=== PATIENT | female | born 1990 | race Caucasian/White ===

== ENCOUNTER → 2016-09-15 | Outpatient (CLI) | payer OTHER ==
--- NOTE | 2016-09-15 09:23 | DIAGNOSTIC IMAGING REPORT ---
PELVIC ULTRASOUND CLINICAL HISTORY: Pelvic pain. COMPARISON STUDY: None. TECHNIQUE: Transabdominal and transvaginal sonography of the pelvis was performed. FINDINGS: The uterus measures 10.1 x 5 x 4 cm. The endometrium measures 1 cm in thickness. The right ovary measures 3.9 x 4.2 x 1.9 cm and contains a 1.9 cm dominant follicle. The left ovary measures 3.3 x 2.6 x 1.6 cm. There is color flow within each ovary. There is no free fluid. IMPRESSION: Normal pelvic ultrasound. Electronically signed by: Juan Mar M.D. 09/15/2016 9:21 AM Dictated Date/Time: 09/15/2016 9:20 AM
--- NOTE | 2016-09-15 09:56 | DIAGNOSTIC IMAGING REPORT ---
ULTRASOUND ABDOMEN COMPLETE CLINICAL HISTORY: Upper abdominal pain. COMPARISON STUDY: No priors. TECHNIQUE: Real-time, grayscale, and color flow sonography of the abdomen was performed. Images are reviewed in the transverse and longitudinal planes. FINDINGS: Liver: The liver is normal in size and echotexture. There is no intrahepatic biliary ductal dilatation. Gallbladder: The gallbladder is normal in appearance. No gallstones are identified. There is no gallbladder wall thickening or pericholecystic fluid. A sonographic Lu's sign is reportedly absent. The common bile duct measures up to 0.4 cm in diameter. Pancreas: Visualized portions of the pancreatic head and body are normal in appearance. Spleen: The spleen is normal in size and echotexture, measuring 10.5 cm in length. Kidneys: The kidneys are normal in size and echotexture. There is no hydronephrosis. The right kidney measures 11.1 cm in length and the left kidney measures 11.2 cm in length. No shadowing calculi are identified. Abdominal vasculature: Visualized portions of the abdominal aorta and IVC are normal as imaged. Ascites: None. IMPRESSION: Unremarkable sonographic assessment of the abdomen. Electronically signed by: Ej Martinez M.D. 09/15/2016 9:54 AM Dictated Date/Time: 09/15/2016 9:20 AM
== END | disposition home or self-care (01) ==
LOC: C.ULTR 07:54
PROVIDERS: ATTEND Family Medicine
DX: R10.10 Upper abdominal pain, unspecified (principal); R10.2 Pelvic and perineal pain

== ENCOUNTER → 2017-05-27 | Outpatient (CLI) | payer OTHER ==
[2017-05-27 16:59] LABS: MEAN CELL VOLUME 91.1 fL (80-100); MEAN CORPUSCULAR HEMOGLOBIN 30.1 pg (25-34); MEAN CORPUSCULAR HGB CONC 33.1 g/dl (32-36); MEAN PLATELET VOLUME 9.6 fL (7.4-10.4); PLATELET COUNT 353 K/uL (130-400); RED BLOOD COUNT 3.95 M/uL (4.2-5.4); WHITE BLOOD COUNT 8.22 K/uL (4.8-10.8)
[2017-05-27 17:18] LABS: PREG INTERNAL NEGATIVE QC NEG CLEAR BACKGROUND; PREG INTERNAL POSITIVE QC POS CONTROL LINE
== END | disposition home or self-care (01) ==
LOC: C.LAB1850 16:06
PROVIDERS: ATTEND Physician Assistant
DX: N92.6 Irregular menstruation, unspecified (principal)

== ENCOUNTER 2017-09-10 06:07 | Emergency (ER) | payer OTHER ==
[~2017-09-10] VITALS: Ht 172.7 cm; Wt 75.4 kg
[2017-09-10 06:12] VITALS: TEMP 36.6; Ht 172.7 cm; Wt 75.4 kg
[2017-09-10] MEDS ORDERED: ASCO500T16 PO (06:29)
[2017-09-10] MEDS ORDERED: CHOL1000 PO (06:30)
[2017-09-10] MEDS ORDERED: VITACAP37 PO (06:31)
[2017-09-10] MEDS ORDERED: OMEG10007 PO (06:32)
[2017-09-10] MEDS ORDERED: FERR1TAB23 PO (06:33)
[2017-09-10] MEDS ORDERED: MULT-580 PO (06:34)
[2017-09-10] MEDS ORDERED: FOLI1TAB8 PO (06:35)
[2017-09-10] MEDS ORDERED: SELE1TAB PO (06:36)
[2017-09-10] MEDS ORDERED: DIPHTHERIA/TETANUS/PERTUSSIS 0.5 ML SYR/VIAL IM. ONE (07:00)
[2017-09-10] MEDS ORDERED: LIDOCAINE/EPINEPHRINE 1% 20 ML VIAL INFIL ONE (07:00)
--- NOTE | 2017-09-10 07:54 | DIAGNOSTIC IMAGING REPORT ---
RIGHT FOOT 3 VIEWS CLINICAL HISTORY: Right heel pain. Foreign body assessment. The patient stepped on a pencil. FINDINGS: 3 views of the right foot are obtained. No prior studies are available for comparison at the time of dictation. The skeletal structures are well mineralized. No fracture is seen. The joint spaces of the foot are well-maintained. A large os naviculari is incidentally noted. There is a 1.2 cm slightly radiodense foreign body identified along the plantar aspect of the anterior calcaneus. This is located approximately 1 cm deep to the dermal surface and there is overlying soft tissue induration. IMPRESSION: 1. No acute bony abnormality is identified in the right foot. 2. There is a slightly radiodense foreign body identified in the plantar soft tissues at the level of the anterior calcaneus as above. Electronically signed by: Ej Martinez M.D. 09/10/2017 7:53 AM Dictated Date/Time: 09/10/2017 7:51 AM
[2017-09-10] MEDS ORDERED: CEPH500C PO (09:03)
--- NOTE | 2017-09-10 09:04 | EMERGENCY ROOM VISIT NOTE ---
History First contact with patient: 06:50 Chief Complaint: LACERATION/CUT (SUT/DERMABOND) Stated Complaint: CUT ON RIGHT FOOT - PENCIL TIP INSIDE Nursing Triage Summary: Pt reports she was walking from her bathroom back to her room when she stepped on a backpack and a lead pencil when into the bottom of her right foot. Pt states "it bleed a lot and there is lead stuck in there". History of Present Illness The patient is a 26 year old female who presents to the Emergency Room via private vehicle with complaints of "cut on right footpencil-tip inside". The patient states that earlier today she had to use the restroom and while ambulate him back to her bed she stepped on a pencil that was sticking out of the backpack. She notes that it went through her left heel. It broke off. She is unsure of her tetanus status. She rates the pain as a 6/10. She states that it was just the tip of the pencil and the cone/wooden piece was preserved. Review of Systems A complete 6-point Review of Systems was discussed with the patient, with pertinent positives and negatives listed in the History of Present Illness. All remaining Review of Systems questions can be considered negative unless otherwise specified. Past Medical/Surgical History No pertinent. Family History Noncontributory. Social History Smoking Status: Never Smoker Patient is employed and lives locally. Current/Historical Medications Scheduled Ascorbic Acid (Ascorbic Acid), Unknown Dose PO DAILY Cephalexin Monohydrate (Keflex), 500 MG PO TID Cholecalciferol (Vitamin D3), Unknown Dose PO DAILY Ferrous Sulfate (Iron), Unknown Dose PO DAILY Fish Oil ([place]-3), 1 CAP PO DAILY Folic Acid (Folvite), Unknown Dose PO DAILY Multiple Vitamins W/ Minerals (Hair/Skin/Nails), 1 TAB PO DAILY Selenium (Selenium), Unknown Dose PO DAILY Vitamin E (E-400), Unknown Dose PO DAILY Physical Exam Vital Signs Date Time Temp Pulse Resp B/P (MAP) Pulse Ox O2 Delivery O2 Flow Rate FiO2 09/10/17 09:29 78 18 118/75 98 09/10/17 06:12 36.6 81 18 115/74 98 Room Air Physical Exam VITAL SIGNS - Vital signs and nursing notes were reviewed. Stable. GENERAL -26-year-old female appearing her stated age who is in no acute distress. Communicates well with provider and answers questions appropriately. SKIN - Without rashes. On the plantar aspect of the patient's right medial anterior heel there is a small punctate puncture wound. No bleeding. EXTREMITIES - No clubbing or peripheral cyanosis. No pretibial edema present. Tenderness with palpation of the heel. Full range of motion of the lower extremity noted. Medical Decision & Procedures ER Provider Diagnostic Interpretation: RIGHT FOOT 3 VIEWS CLINICAL HISTORY: Right heel pain. Foreign body assessment. The patient stepped on a pencil. FINDINGS: 3 views of the right foot are obtained. No prior studies are available for comparison at the time of dictation. The skeletal structures are well mineralized. No fracture is seen. The joint spaces of the foot are well-maintained. A large os naviculari is incidentally noted. There is a 1.2 cm slightly radiodense foreign body identified along the plantar aspect of the anterior calcaneus. This is located approximately 1 cm deep to the dermal surface and there is overlying soft tissue induration. IMPRESSION: 1. No acute bony abnormality is identified in the right foot. 2. There is a slightly radiodense foreign body identified in the plantar soft tissues at the level of the anterior calcaneus as above. Electronically signed by: Ej Martinez M.D. 09/10/2017 7:53 AM Dictated Date/Time: 09/10/2017 7:51 AM Medications Administered Medications (Trade) Dose Ordered Sig/Lui Route Start Time Stop Time Status Last Admin Dose Admin Diphtheria/ Pertussis/Tetanus Vacc (Adacel Inj) 0.5 ml ONCE ONCE IM. 09/10/17 07:00 09/10/17 07:01 DC 09/10/17 08:24 0.5 ML Medical Decision Patient was seen and evaluated as above in room A3. Review was performed of nursing notes and vital signs. After obtaining a thorough history and physical examination the above work up was performed. X-ray was obtained. There is retained foreign body. Benefit versus risk of performing a procedure was discussed. I did anesthetize the region with 2 cc of 1% buffered lidocaine after obtaining consent and sterilely dressing the wound. An attempt was made to remove this. This was unsuccessful. I then had the attending come to bedside and he was able to then remove the piece. Please refer to his note for his procedure. She will be placed on Keflex. She is due to [id number] pain medication. She is to watch for signs of infection. This was thoroughly discussed. She is to return with any worsening. She was given her tetanus immunization. The patient was educated upon management, had questions answered prior to discharge, and was discharged home in good condition. In the evaluation and treatment of this patient the following differential diagnoses were obtained: Fracture, dislocation, among others. Impression Primary Impression: Foreign body in heel Departure Information Dispostion Home / Self-Care Condition GOOD Prescriptions Cephalexin Monohydrate (Keflex) 500 Mg Cap 500 MG PO TID for 7 Days, #21 CAP Prov: Gerald Mclean PA-C 09/10/17 Referrals No Doctor, Assigned (PCP) Patient Instructions My [facility] Additional Instructions Proper wound care is essential for adequate wound healing and infection prevention. You can shower and clean the wound with soap and water. Do not scour over the wound, pat dry with a towel. Do not submerse the wound (i.e. bathe or dish wash) for 3 days. You can use an antibiotic ointment with a dressing over the wound for the next 3-4 days. After this time you may leave the wound dry and open to the air. If crust develops over the wound you can use a Q-tip to apply a 1:1 peroxide:water solution to clean the wound. Keflex 1 tablet every 8 hours for infection prevention. Look for signs of infection of the wound including: increased pain, swelling, foul discharge, streaking, or increased temperature. If any of these are noticed you should return to the Emergency Department for further assessment and treatment. Please return with any signs of infection. As with any laceration you may have received nerve damage to the surrounding tissues. This damage may or may not be permanent. For pain control, you can use the following [id number] medicines: - Regular strength (325mg/tab) Tylenol (acetaminophen) 2 tabs every 4-6 hours as needed. Do not exceed 12 tablets in a 24 hour period. Avoid taking more than 3 grams (3000 mg) of Tylenol per day. This includes any other sources of acetaminophen you may take on a regular basis. - Regular strength (200 mg/tab) Advil (ibuprofen) 1-2 tabs every 4-6 hours as needed. Do not exceed a dose of 3200 mg per day. Return to the emergency department if your symptoms worsen despite treatment course outlined above.
--- NOTE | 2017-09-10 09:06 | EMERGENCY ROOM VISIT NOTE ---
ED Visit Note First contact with patient: 06:50 The patient was seen and examined with Gerald Mclean PA-C. I agree with the history, physical and findings. Please see the note for disposition and details. Procedure note: Foreign body removal by me Indication: subcutaneous foreign body Risks and benefits discussed. The patient had a sterile field prepped. Betadine applied. An alligator forcep was used after administration of lidocaine with epinephrine to follow the tract. Ultrasound imaging was utilized to visualize the foreign body as well as x-ray imaging. The foreign body was removed after several attempts. One large single piece of pencil graphite retrieved. 2 small pieces of pencil would also removed. Signs and symptoms of infection reviewed. Discussed possible high risk for wound infection given the foreign body pieces. Patient indicated her understanding.
[2017-09-10 09:29] VITALS: BP 118/75; PULSE 78; O2SAT 98
== END 2017-09-10 09:29 | disposition home or self-care (01) ==
LOC: C.EDB 06:08 → C.EDA 09:29
DX: S90.851A Superficial foreign body, right foot, initial encounter (principal); W22.8XXA Striking against or struck by other objects, initial encounter; Z23 Encounter for immunization